=== PATIENT | female | born 1960 | race Caucasian/White ===

== ENCOUNTER → 2017-02-20 | Outpatient (CLI) | payer BC | LOC: WI 11:07 | PROVIDERS: ATTEND Nurse Practitioner Family | DX: N64.4 Mastodynia (principal) | CPT/HCPCS: 76641; G0204; 77066 ==

== ENCOUNTER 2020-07-05 01:58 | Emergency (ER) | payer BC ==
--- NOTE | 2020-07-05 05:03 | ER Document Report ---
Entered by HORACIO OLEA SCRIBE 07/05/20 0448 Acting as scribe for:LA BRIDGES IV, MD ED General - General Mode of Arrival: Ambulatory Information source: Patient TRAVEL OUTSIDE OF THE [place] IN LAST 30 DAYS: No - Related Data Home Medications: metformin <LA BRIDGES IV - Last Filed: 07/05/20 05:41> <KLARISSA WHITE - Last Filed: 07/05/20 09:06> - General Chief Complaint: Irregular Pulse Stated Complaint: CHEST PAIN Time Seen by Provider: 07/05/20 04:25 Primary Care Provider: ELSY BARBOZA FNP-C [NO LOCAL MD] - Follow up as needed Notes: This 60 year old female patient presents to the ED today with complaints of palp itations for the past x2 nights. Patients states that she had x2 episodes last night where her heart would start racing and wake her up. She states that when she got up to use the bathroom [employer], she felt suddenly weak, so she sat back down. She reports that every time she tries to go back to sleep, her heart would start racing. Denies chest pain or shortness of breath. Denies taking any decongestants, new natural supplements, or appetite suppressants. Denies change in caffeine intake. Denies cardiac history, but reports a history of DM (on Metformin) and that she does check her blood pressure multiple times throughout the day. Last BP at home was 173/99 per patient. (LA BRIDGES IV) Past Medical History - General Information source: Patient, [facility] Records - Social History Smoking Status: Never Smoker Cigarette use (# per day): No Chew tobacco use (# tins/day): No Smoking Education Provided: No Lives with: Spouse/Significant other Family History: Reviewed & Not Pertinent Patient has suicidal ideation: No Patient has homicidal ideation: No Endocrine Medical History: Reports: Hx Diabetes Mellitus Type 2 <LA BRIDGES IV - Last Filed: 07/05/20 05:41> Review of Systems - Review of Systems Constitutional: See HPI, Weakness EENT: No symptoms reported Cardiovascular: See HPI, Palpitations, Heart racing. denies: Chest pain Respiratory: See HPI. denies: Short of breath Gastrointestinal: No symptoms reported Genitourinary: No symptoms reported Female Genitourinary: No symptoms reported Musculoskeletal: No symptoms reported Skin: No symptoms reported Hematologic/Lymphatic: No symptoms reported Neurological/Psychological: No symptoms reported -: Yes All other systems reviewed and negative <LA BRIDGES IV - Last Filed: 07/05/20 05:41> Physical Exam - General General appearance: Appears well, Alert In distress: None - HEENT Head: Normocephalic, Atraumatic Eyes: Normal Pupils: PERRL - Respiratory Respiratory status: No respiratory distress Chest status: Nontender Breath sounds: Normal Chest palpation: Normal - Cardiovascular Rhythm: Regular Heart sounds: Normal auscultation Murmur: No Friction rub: No Gallop: None auscultated - Abdominal Inspection: Normal Distension: No distension Bowel sounds: Normal Tenderness: Nontender - Abdomen soft Organomegaly: No organomegaly - Back Back: Normal, Nontender - Extremities General upper extremity: Normal inspection General lower extremity: Normal inspection - Neurological Neuro grossly intact: Yes Orientation: AAOx4 [place] Coma Scale Eye Opening: Spontaneous Addie Coma Scale Verbal: Oriented Addie Coma Scale Motor: Obeys Commands [place] Coma Scale Total: 15 - Psychological Associated symptoms: Normal affect, Normal mood - Skin Skin Temperature: Warm Skin Moisture: Dry Skin Color: Normal <LA BRIDGES IV - Last Filed: 07/05/20 05:41> - Vital signs Vitals: Temp Pulse Resp BP Pulse Ox 98.8 F 83 18 152/77 H 95 07/05/20 02:20 07/05/20 02:20 07/05/20 02:20 07/05/20 02:20 07/05/20 02:20 Course - Laboratory Result Diagrams: 07/05/20 04:40 07/05/20 04:40 <LA BRIDGES IV - Last Filed: 07/05/20 05:41> - Laboratory Result Diagrams: 07/05/20 04:40 07/05/20 04:40 - Diagnostic Test Radiology reviewed: Image reviewed <KLARISSA WHITE - Last Filed: 07/05/20 09:06> - Vital Signs Vital signs: Temp Pulse Resp BP Pulse Ox 98.8 F 66 14 128/68 H 99 07/05/20 02:20 07/05/20 05:22 07/05/20 07:01 07/05/20 07:01 07/05/20 07:01 - Laboratory Laboratory results interpreted by me: 07/05/20 04:40 Chloride 108 H Glucose 186 H Calcium 10.6 H ALT 38 H 07/05/20 09:06 Lab results troponin x2- and TSH and thyroid studies all within normal limits. (KLARISSA WHITE) - EKG Interpretation by Me Additional EKG results interpreted by me: 07/05/20 05:35 EKG obtained on 07/05/2020 at 0217 hrs. was interpreted by this MD. Findings: Normal sinus rhythm, rate 89, normal axis, P waves proceed QRS complexes, QRS complexes appear narrow, there are no obvious patterns of ST segment elevation or depression present to suggest acute myocardial ischemia or infarction. Impression: Normal sinus rhythm with nonspecific ST segments. (LA BRIDGES IV) Discharge <LA BRIDGES IV - Last Filed: 07/05/20 05:41> <KLARISSA WHITE - Last Filed: 07/05/20 09:06> - Discharge Clinical Impression: Palpitations Condition: Stable Disposition: HOME, SELF-CARE Additional Instructions: Return to the Emergency Department without delay if any worse. HOME CARE INSTRUCTIONS & INFORMATION: Thank you for choosing us for your medical needs. We hope you're satisfied with the care you received. After you leave, you must properly care for your problem and, at the same time, observe its progress. Any condition can change. Some illnesses can change rapidly over hours or days. If your condition worsens, return to the Emergency Department or see your physician promptly. ABOUT YOUR X-RAYS AND EKG'S: If you had an EKG or X-rays taken, they have been read by the Emergency Physician. The X-rays and EKG's will also be read by a Radiologist or Fibre Optic Cable Splicer within 24 hours. If discrepancies are noted, you will be notified by telephone. Please be certain the ED has a correct telephone number & address where you can be reached. Also, realize that some fractures or abnormalities do not show up on initial X-rays. If your symptoms continue, see your physician. ABOUT YOUR LABORATORY TEST: If you had laboratory tests, the results have been reviewed by the Emergency Physician. Some test results (for example cultures) may not be available for several days. You will be contacted if any test result shows you need additional treatment. Please be certain the ED has a correct telephone number and address where you can be reached. ABOUT YOUR MEDICATIONS: You will receive instructions on how to take your medicine on the prescription label you receive. Additional information may be provided by the Pharmacy. If you have questions afterwards, call the ED for clarification or further instructions. Some prescribed medications may cause drowsiness. Do not perform tasks such as driving a car or operating machinery without consulting your Pharmacist. If you feel you need a refill of pain medication, your condition will need re-evaluation. Please do not call for a refill of any medication. ABOUT YOUR SIGNATURE: Signature of this document acknowledges to followin. Understanding that you received emergency treatment and that you may be released before al medical problems are known or treated. Please be certain the ED has a correct phone number & address where you can be reached. 2. Acknowledgement that you will arrange for follow-up care as recommended. 3. Authorization for the Emergency Physician to provide information to your follow-up Physician in order to maximize your care. AT ANY TIME, IF YOUR SYMPTOMS CHANGE SIGNIFICANTLY OR WORSEN OR YOU DEVELOP NEW SYMPTOMS, RETURN TO THE EMERGENCY DEPARTMENT IMMEDIATELY FOR RE-EVALUATION. OUR GOAL IS TO PROVIDE EXCELLENT MEDICAL CARE! WE HOPE THAT WE HAVE MET YOUR EXPECTATIONS DURING YOUR EMERGENCY DEPARTMENT VISIT AND THAT YOU FEEL YOU HAVE RECEIVED EXCELLENT CARE! Palpitations (Irregular/Rapid Heartrate) Irregular or rapid heartbeat is called "palpitation." To diagnose the cause of palpitation, we have to "catch it in the act" with an EKG. Sinus Tachycardia: This is a rapid (but NORMAL) rhythm that can be due to fever, pain, anxiety, lack of sleep, over-exertion, or drugs. Cold medications, caffeine, and diet pills are particularly likely to cause tachycardia. Usually, all that's required is rest, reassurance, and avoiding caffeine, alcohol, nicotine, and unnecessary medicines. Paroxysmal Atrial Tachycardia (PAT): This abnormally rapid heartbeat is caused by a "short circuit" in the electrical system of the heart. It is not dangerous, unless other heart disease is present. These attacks of PAT may occur occasionally for years. Medication is available for treatment. Paroxysmal Atrial Fibrillation or Atrial Flutter: This is irregular electrical activity in the upper heart chamber. These abnormal rhythms often occur with valve disease or in hearts damaged by hardening of the arteries. These rhythms usually require further testing, for example a cardiac echo. Premature Beats: Extra beats occur more commonly after caffeine, nicotine, alcohol, cold pills, diet pills. Emotional stress or fatigue also provoke them. Extra beats are only dangerous when heart disease is present. They usually need no treatment. If they're frequent, or if evidence of heart disease develops, medication can be given to suppress them. If we were unable to "catch" the palpitations on EKG, you should try to get an EKG immediately if the symptoms begin again. Contact the physician at once if you develop persistent lightheadedness, shortness of breath, chest pain, or swelling of the ankles. Referrals: ELSY BARBOZA, SU[employer] PLATE CARRIER CLEANER-C [NO LOCAL MD] - Follow up as needed I personally performed the services described in the documentation, reviewed and edited the documentation which was dictated to the scribe in my presence, and it accurately records my words and actions.
[2020-07-05 05:29] LABS: ABSOLUTE LYMPHOCYTES (AUTO) 2.8 10^3/uL (0.5-4.7); ABSOLUTE MONOCYTES (AUTO) 0.5 10^3/uL (0.1-1.4); ABSOLUTE NEUT (AUTO) 6.2 10^3/uL (1.7-8.2); BASOPHILS % (AUTO) 0.4 % (0-2); EOSINOPHILS % (AUTO) 0.2 % (0-6); HEMATOCRIT 42.2 % (36.0-47.0); HEMOGLOBIN 14.2 g/dL (12.0-15.5); LYMPHOCYTES % (AUTO) 29.4 % (13-45); MEAN CORPUSCULAR HEMOGLOBIN 30.2 pg (27.0-33.4); MEAN CORPUSCULAR HGB CONC 33.6 g/dL (32.0-36.0); MEAN CORPUSCULAR VOLUME 90 fl (80-97); MONOCYTES % (AUTO) 5.6 % (3-13); PLATELET COUNT 280 10^3/uL (150-450); RED BLOOD COUNT 4.71 10^6/uL (3.72-5.28); RED CELL DISTRIBUTION WIDTH 13.3 % (11.5-14.0); SEGMENTED NEUTROPHILS % (AUTO) 64.4 % (42-78); TOTAL CELLS COUNTED % (AUTO) 100 %; WHITE BLOOD COUNT 9.7 10^3/uL (4.0-10.5)
[2020-07-05 05:51] LABS: ALBUMIN 4.7 g/dL (3.5-5.0); ALKALINE PHOSPHATASE 65 U/L (38-126); ANION GAP 11 (5-19); ASPARTATE AMINO TRANSFERASE 29 U/L (14-36); BILIRUBIN,DIRECT 0.3 mg/dL (0.0-0.4); BILIRUBIN,TOTAL 0.7 mg/dL (0.2-1.3); BLOOD UREA NITROGEN 17 mg/dL (7-20); CALCIUM 10.6 mg/dL (8.4-10.2); CARBON DIOXIDE 23 mmol/L (22-30); CHLORIDE 108 mmol/L (98-107); GLUCOSE 186 mg/dL (75-110); POTASSIUM 4.2 mmol/L (3.6-5.0); TOTAL PROTEIN 7.9 g/dL (6.3-8.2)
[2020-07-05 06:08] LABS: FREE T3 3.99 pg/mL (2.77-5.27); FREE T4 (FREE THYROXINE) 1.16 ng/dL (0.78-2.19)
[2020-07-05 06:21] LABS: THYROID STIMULATING HORMONE 4.15 uIU/mL (0.47-4.68)
[2020-07-05 07:18] VITALS: BP 128/68
--- NOTE | 2020-07-05 20:20 | EKG REPORT ---
SEVERITY:- NORMAL ECG - SINUS RHYTHM : Confirmed by: Nadine Oconnell 05-Jul-2020 20:19:07
== END 2020-07-05 09:15 | disposition home or self-care (01) ==
LOC: ER 01:58
DX: R00.2 Palpitations (principal); R53.1 Weakness; E11.9 Type 2 diabetes mellitus without complications; Z79.84 Long term (current) use of oral hypoglycemic drugs
CPT/HCPCS: 36415; 80053; 83735; 84439; 84443; 84481; 84484; 85025; 93005; 93010; 99284

== ENCOUNTER 2020-07-22 13:16 | Emergency (ER) | payer BC ==
[2020-07-22] MEDS ORDERED: GLUCAGON,HUMAN RECOMB 1 MG INJ IM ONE (13:29)
--- NOTE | 2020-07-22 13:31 | ER Document Report ---
ED Medical Screen (RME) - General Chief Complaint: Difficulty Swallowing Stated Complaint: THROAT PAIN Time Seen by Provider: 07/22/20 13:26 Primary Care Provider: CHERISE AYALA MD [Primary Care Provider] - Follow up as needed Mode of Arrival: Ambulatory Information source: Patient Notes: 6-year-old female patient presented emergency department with esophageal foreign body. Patient reports she was eating pineapple, she states there is a large piece of pineapple with part of the outer rind stuck. She is able to talk, she is breathing without difficulty. She has tolerated oral intake however she states it is causing her discomfort and she knows it is stuck. She denies any history of previous issues with this. I have greeted and performed a rapid initial assessment of this patient. A comprehensive ED assessment and evaluation of the patient, analysis of test results and completion of the medical decision making process will be conducted by additional ED providers. I have specifically instructed the patient or family members with the patient to immediately return to any nursing staff should anything change in the patient's condition or with their chief complaint. TRAVEL OUTSIDE OF THE [place] IN LAST 30 DAYS: No - Related Data Allergies/Adverse Reactions: No Known Allergies Allergy (Verified 07/22/20 13:25) Past Medical History - Social History Frequency of alcohol use: None Drug Abuse: None Endocrine Medical History: Reports: Hx Diabetes Mellitus Type 2 Physical Exam - Vital signs Vitals: Temp Pulse Resp BP Pulse Ox 98.1 F 87 18 147/78 H 97 07/22/20 13:19 07/22/20 13:19 07/22/20 13:19 07/22/20 13:19 07/22/20 13:19 Course - Vital Signs Vital signs: Temp Pulse Resp BP Pulse Ox 98.1 F 87 18 147/78 H 97 07/22/20 13:19 07/22/20 13:19 07/22/20 13:19 07/22/20 13:19 07/22/20 13:19 Doctor's Discharge - Discharge Referrals: CHERISE AYALA MD [Primary Care Provider] - Follow up as needed
--- NOTE | 2020-07-22 16:12 | ER Document Report ---
ED Foreign Body - General Chief Complaint: Difficulty Swallowing Stated Complaint: THROAT PAIN Time Seen by Provider: 07/22/20 15:40 Primary Care Provider: CHERISE AYALA MD [Primary Care Provider] - Follow up as needed Mode of Arrival: Ambulatory Information source: Patient Notes: Patient states she was eating pineapple around 1130 this morning and felt a piec e get stuck in her throat. Patient tried to drink soda and eat ice cream to help the food bolus go down without success. Patient denies any coughing or choking episodes. Patient denies any nausea or vomiting. Patient has been able to manage her oral secretions. Patient denies any previous history of food getting lodged in her throat. Patient reports mild GERD symptoms occasionally at home. TRAVEL OUTSIDE OF THE [place] IN LAST 30 DAYS: No - HPI Location of foreign body: Other - Esophagus Onset: This morning Onset/Duration: Sudden Quality of pain: Achy Associated symptoms: denies: Vomiting blood Exacerbated by: Denies Relieved by: Denies Similar symptoms previously: No Recently seen / treated by doctor: No - Related Data Allergies/Adverse Reactions: No Known Allergies Allergy (Verified 07/22/20 16:22) Past Medical History - General Information source: Patient - Social History Smoking Status: Never Smoker Frequency of alcohol use: None Drug Abuse: None Occupation: None Lives with: Family Family History: Reviewed & Not Pertinent Endocrine Medical History: Reports: Hx Diabetes Mellitus Type 2 Malignancy Medical History: Reports: Hx Colorectal Cancer GI Medical History: Reports: Hx Gastroesophageal Reflux Disease Past Surgical History: Reports: Hx Bowel Surgery, Hx Cholecystectomy, Hx Hysterectomy Review of Systems - Review of Systems Constitutional: No symptoms reported. denies: Fever, Recent illness EENT: No symptoms reported Cardiovascular: No symptoms reported. denies: Chest pain Respiratory: No symptoms reported. denies: Cough, Short of breath Gastrointestinal: Other - Esophageal foreign body. denies: Abdominal pain Genitourinary: No symptoms reported Female Genitourinary: No symptoms reported Musculoskeletal: No symptoms reported Skin: No symptoms reported Hematologic/Lymphatic: No symptoms reported Neurological/Psychological: No symptoms reported Physical Exam - Vital signs Vitals: Temp Pulse Resp BP Pulse Ox 98.1 F 87 18 147/78 H 97 07/22/20 13:19 07/22/20 13:19 07/22/20 13:19 07/22/20 13:07/22/20 13:19 - General General appearance: Appears well, Alert In distress: None - HEENT Head: Normocephalic, Atraumatic Eyes: Normal Conjunctiva: Normal Nasal: Normal Mouth/Lips: Normal Mucous membranes: Normal Pharynx: Normal. No: Potential airway comprom. Neck: Normal, Supple. No: Lymphadenopathy - Respiratory Respiratory status: No respiratory distress Chest status: Nontender Breath sounds: Normal. No: Rales, Rhonchi, Stridor, Wheezing Chest palpation: Normal - Cardiovascular Rhythm: Regular Heart sounds: S1 appreciated, S2 appreciated - Back Back: Normal, Nontender - Extremities General upper extremity: Normal inspection, Nontender, Normal strength General lower extremity: Normal inspection, Nontender, Normal strength - Neurological Neuro grossly intact: Yes Cognition: Normal Addie Coma Scale Eye Opening: Spontaneous [place] Coma Scale Verbal: Oriented [place] Coma Scale Motor: Obeys Commands Addie Coma Scale Total: 15 - Psychological Associated symptoms: Normal affect, Normal mood - Skin Skin Temperature: Warm Skin Moisture: Dry Skin Color: Normal Course - Re-evaluation Re-evalutation: 07/22/20 16:[address] segal who recommends imaging to evaluate for any possible retained food bolus. Spoke with radiologist who advises ordering a barium swallow study at this time. 07/22/20 17:31 Barium swallow study completed, patient states that whenever she drink the contrast she felt the foreign body dislodged and go down. Patient states that she is not having any symptoms at this time. Results of barium swallow test reviewed, no impeded passage of contrast material. Patient encouraged to follow-up with primary doctor as she may need follow-up endoscopy procedure. - Vital Signs Vital signs: Temp Pulse Resp BP Pulse Ox 97.5 F 79 12 143/81 H 98 07/22/20 17:48 07/22/20 17:48 07/22/20 17:48 07/22/20 17:48 07/22/20 17:48 - Laboratory Laboratory results interpreted by me: 07/22/20 17:30 POC Glucose 154 H - Diagnostic Test Radiology reviewed: Image reviewed, Reports reviewed Discharge - Discharge Clinical Impression: Resolved esophageal food impaction Condition: Stable Disposition: HOME, SELF-CARE Instructions: Esophageal Foreign Body ([facility]) Additional Instructions: Return immediately for any new or worsening symptoms Followup with your primary care provider, call tomorrow to make a followup appointment Referrals: CHERISE AYALA MD [Primary Care Provider] - Follow up as needed
[2020-07-22] MEDS ORDERED: ONDANSETRON 4 MG TAB.RAPDIS PO ONE (16:38)
--- NOTE | 2020-07-22 17:19 | RADIOLOGY REPORT (SQ) ---
EXAM DESCRIPTION: SOFT TISSUE NECK IMAGES COMPLETED DATE/TIME: 07/22/2020 5:10 pm REASON FOR STUDY: ? food bolus COMPARISON: None. NUMBER OF VIEWS: Two views. TECHNIQUE: AP and lateral radiographs of the cervical esophagus and an AP radiograph of the thoracic esophagus for obtained after the administration of oral. LIMITATIONS: None. FINDINGS: Refer to the Impression. IMPRESSION: There is unimpeded passage of the contrast bolus through the esophagus and into the stom ach ; there are no filling defects within the esophagus that account for the patient's symptomatology . TECHNICAL DOCUMENTATION: JOB ID: [id number] 2010 [employer]- All Rights Reserved Reading location - IP/workstation name: [email or web address]
[2020-07-22 17:52] VITALS: BP 143/81
== END 2020-07-22 17:53 | disposition home or self-care (01) ==
LOC: ER 13:16
DX: T18.128A Food in esophagus causing other injury, initial encounter (principal); X58.XXXA Exposure to other specified factors, initial encounter; Y93.89 Activity, other specified; E11.9 Type 2 diabetes mellitus without complications; Z85.048 Personal history of other malignant neoplasm of rectum, rectosigmoid junction, and anus
CPT/HCPCS: 99284; 96372; 82962; 70360; S0119; J1610